=== PATIENT | female | born 1990 | race Caucasian/White ===

== ENCOUNTER → 2020-04-21 14:13 | Outpatient (REF) | payer OTHER, SELFPAY | LOC: ANHLAB 14:13 | PROVIDERS: PCP Family Medicine; Visit Provider Nurse Practitioner | DX: D22.72 Melanocytic nevi of left lower limb, including hip (principal) | CPT/HCPCS: 88305 ==

== ENCOUNTER 2020-07-07 15:07 | Outpatient (CLI) | payer OTHER, SELFPAY ==
[2020-07-07 17:24] LABS: Free T4 Free Thyroxine 0.77 ng/mL (0.78-2.19)
== END 2020-07-07 15:08 | disposition home or self-care (01) ==
LOC: ANHLAB 15:09
PROVIDERS: Visit Provider Obstetrics & Gynecology
DX: N92.1 Excessive and frequent menstruation with irregular cycle (principal)
CPT/HCPCS: 36415; 84439; 84443

== ENCOUNTER 2020-07-21 16:28 | Outpatient (CLI) | payer OTHER, SELFPAY ==
--- NOTE | ~2020-07-21 | US_ITS ---
EXAMINATION: US pelvic complete w TV DATE: 07/21/2020 17:03 INDICATION: Menometrorrhagia TECHNIQUE: Multiple transabdominal and endovaginal sonographic images of the pelvis were obtained. COMPARISON: None. FINDINGS: The uterus measures 7.0 x 3.3 x 5.3 cm. The endometrial complex measures 4 mm. An IUD appea rs to be in expected position. The right ovary measures 3.2 x 1.9 x 2.4 cm. The left ovary measures 2 .3 x 1.5 x 1.8 cm. There is normal vascular flow in the ovaries. There is no free fluid in the pelvis . IMPRESSION: 1. No sonographic correlate for the patient's symptoms. Reviewed, dictated and finalized at location A.
== END 2020-07-21 16:29 | disposition home or self-care (01) ==
PROVIDERS: Visit Provider Obstetrics & Gynecology
DX: N92.1 Excessive and frequent menstruation with irregular cycle (principal)
CPT/HCPCS: 76830; 76856

== ENCOUNTER 2020-11-23 07:58 | Outpatient (CLI) | payer OTHER, SELFPAY ==
[2020-11-23 08:14] LABS: Hemoglobin 11.8 g/dL (12.0-15.0); Mean Corpuscular HGB Conc 32.8 g/dl (32-36); Mean Corpuscular Hemoglobin 31.1 pg (26-34); Mean Platelet Volume 9.5 fl (7.4-10.4); Platelet Count Result 244 k/mm3 (150-375); Red Blood Count 3.79 M/mm3 (4.2-5.4); Red Cell Distribution Width 13.2 % (11.5-14.5); White Blood Count 4.6 K/mm3 (4.5-10.0)
[2020-11-23 08:26] LABS: Alanine Aminotransferase 12 U/L (4-35); Albumin Level 3.9 g/dL (3.5-5.1); Alkaline Phosphatase 42 U/L (38-126); Anion Gap 3 mmol/L (8-16); Aspartate Amino Transferase 23 U/L (14-36); Bilirubin,Total 0.5 mg/dL (0.2-1.3); Blood Urea Nitrogen 11 mg/dL (7-17); Calcium 9.1 mg/dL (8.4-10.2); Carbon Dioxide 28 mmol/L (22-30); Chloride 105 mmol/L (98-107); Cholesterol 175 mg/dL (0-200); Estimated Glomerular Filt Rate > 60; Glucose 98 mg/dL (65-105); HDL Direct 91 mg/dL; Sodium 136 mmol/L (137-145); Triglycerides 99 mg/dL (<150)
[2020-11-23 08:37] LABS: LDL Cholesterol Direct 65 mg/dL
[2020-11-23 08:55] LABS: Free T4 Free Thyroxine 0.84 ng/mL (0.78-2.19)
[2020-11-25 10:48] LABS: Triiodothyronine T3 Free 2.3 pg/mL (2.3-4.2)
== END 2020-11-23 07:59 | disposition home or self-care (01) ==
PROVIDERS: Family Provider Family Medicine; PCP Internal Medicine; Visit Provider Internal Medicine
DX: Z00.00 Encounter for general adult medical examination without abnormal findings (principal)
CPT/HCPCS: 36415; 80053; 80061; 84439; 84443; 84481; 85027

== ENCOUNTER → 2021-01-26 15:49 | Outpatient (REF) | payer OTHER, SELFPAY | LOC: ANHLAB 15:49 | PROVIDERS: PCP Internal Medicine; Visit Provider Nurse Practitioner | DX: D22.62 Melanocytic nevi of left upper limb, including shoulder (principal) | CPT/HCPCS: 88305 ==

== ENCOUNTER 2021-04-02 15:00 | Outpatient (RCR) | payer OTHER, SELFPAY ==
--- NOTE | 2021-03-05 10:17 | PTOPEVAL ---
Thank you for referring Sharonda Sweeney to [facility] [place].? The patient is scheduled to be seen for therapy 2 x/week for 6 weeks. Please review, sign, date and return this plan of care LORRAINE. I agree with and certify that the following plan of care is medically necessary. 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 Denies a problem with her feet until the past 6 months. Subjective Information After her toe healed she Query Text:As Reported By Patient/ started having heel pain in Family Jun 2020. She c/o heel pain in the morning when getting out of bed. She has been stretching and using heat. She performing walking program for exercise. She has increased at the end of day after work. 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 She received an injection in 10/18. She received a 2nd injection 6 wk ago without relief. Custom inserts which helped in her work shoes initially. But then had increased pain with the inserts. She stopped the inserts 2 wk ago with improved pain. Pain Assessment Self Report Pain Assessment Right Volar Foot/Feet Reported Pain Level 0 Pain Description Aching Pain Frequency Chronic,Intermittent Lowest Pain Intensity 0 Greatest Pain Intensity 2 Pain Aggravating Factors Exercise/Activity,Walking, Weight Bearing/Standing Pain Behaviors None Left Volar Foot/Feet Reported Pain Level 0 Pain Description Aching Pain Frequency Chronic,Intermittent Lowest Pain Intensity 0 Greatest Pain Intensity 4 Pain Aggravating Factors Exercise/Activity,Prolonged Position,Walking,Weight Bearing/Standing Pain Behaviors None Lower Extremit
--- NOTE | 2021-04-02 15:51 | PTOPEVAL ---
Thank you for referring Sharonda Sweeney to [facility].? Sharonda has been seen for 7 therapy visits with only slight improved pain and function. She demonstrates improved strength and ankle motion, but no changes with walking or standing tolerance. She has partially achieved her therapy goals. Will hold chart open for 2 weeks as she has f/u with her doctor. Additional therapy services are not recommended at this time. Please review, sign, date and return this therapy update LORRAINE. I agree with and certify that the following plan of care is medically necessary. Referring Physician Date Attending Provider: Asif Castañeda JR, MD Physical Therapy progress note Problem Diagnosis left achilles tendonitis and hugh plantar fasciitis Onset Jun 2020 Additional Evaluation Detail broken toe Jun 2020. After her toe healed she started having heel pain in Jun 2020. She received an injection in 10/18. She received a 2nd injection 6 wk ago without relief. 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 Denies a problem with her feet until the past 6 months. Subjective Information She does not feel therapy has Query Text:As Reported By Patient/ improved her foot pain. She Family continues to have severe pain with standing activities. She reports improved pain in the morning when getting out of bed. She denies any changes in her symptoms with her HEP. Reports she feels better right after the therapy and modalities but no correction carry-over of pain relieft. She is able to perform a walking program without increased pain, but when she stops she will have increased pain. She stopped the inserts due to increased pain with wearing the inserts. Pain Assessment Timing of Pain Assessment Timing of Pain Assessment Re-assessment Pain Scale Pain Scale Used Numeric (1 - 10) Self Report Pain Assessment Right Volar Foot/Feet Reported Pain Level 4 Pain Description Aching Pain Frequency Chronic,Continuous Lowest Pain Intensity
--- NOTE | 2021-04-23 11:27 | PCPTNOTE ---
Admitting Provider: Attending Provider: Asif Castañeda JR, MD Patient:Sharonda Sweeney Date of :1990 Discharge Note Patient has not returned for any further treatments since 04/02/2021, therefore she will be discharged at this time. Patient?s initial visit was on 03/05/2021 09:00 and she had a total of 7 visits. Recommended she f/u with her doctor due to lack of progress with therapy services. The goals have been partially met at this time. Thank you for referring this patient to [facility]. Please review, sign, date and return this discharge summary LORRAINE. I have been updated about the patient's current status and I agree with discharge from the above service at this time. Referring Physician Date
== END 2021-04-26 09:25 | disposition home or self-care (01) ==
LOC: ANHPT 15:00
PROVIDERS: PCP Internal Medicine; Visit Provider Podiatrist Foot & Ankle Surgery
DX: M72.2 Plantar fascial fibromatosis (principal); M76.62 Achilles tendinitis, left leg
CPT/HCPCS: 97035; 97110; 97140; 97161

== ENCOUNTER 2022-01-13 10:33 | Outpatient (CLI) | payer OTHER, SELFPAY ==
--- NOTE | ~2022-01-13 | US_ITS ---
EXAMINATION: US pelvic complete w TV DATE: 01/13/2022 11:28 INDICATION: Dysmenorrhea. Comparison: 07/21/2020 TECHNIQUE: Multiple transabdominal and endovaginal sonographic images of the pelvis performed. FINDINGS: The uterus measures 10.5 x 5.3 x 2.9 cm. There is a small millimeter uterine fibroid. The e ndometrial complex measures 6 mm. The right ovary measures 1.6 x 1.1 x 0.9 cm and the left ovary measures 2.4 x 1 x 1.1 cm. There are small follicles in each ovary. Normal doppler signal in both ovaries. There is no free fluid in the pelvis. There are no abnormal masses seen on either side. IMPRESSION: 1. Small uterine fibroid measuring 6 mm. Reviewed, dictated and finalized at location B.
== END 2022-01-13 10:34 | disposition home or self-care (01) ==
LOC: ANHIMG 10:34
PROVIDERS: PCP Internal Medicine; Visit Provider Obstetrics & Gynecology
DX: N92.1 Excessive and frequent menstruation with irregular cycle (principal); N94.6 Dysmenorrhea, unspecified; D25.9 Leiomyoma of uterus, unspecified
CPT/HCPCS: 76830; 76856

== ENCOUNTER 2022-01-27 15:11 | Outpatient (CLI) | payer OTHER, SELFPAY ==
[2022-01-27 15:34] LABS: Basophils Absolute Auto 0.04 K/mm3 (0.00-0.10); Basophils Percent Auto 0.6 % (0.0-1.0); Eosinophils Absolute Auto 0.13 K/mm3 (0.02-0.50); Eosinophils Percent Auto 1.9 % (1.0-6.0); Hematocrit 36.6 % (35.0-49.0); Hemoglobin 11.9 g/dL (12.0-15.0); Immature Granulocyte Absolute 0.02 K/mm3 (0.00-0.00); Immature Granulocyte Percent A 0.3 % (0.0-0.0); Lymphocytes Absolute Auto 1.87 K/mm3 (1.10-4.50); Lymphocytes Percent Auto 27.7 % (18.0-42.0); Mean Corpuscular HGB Conc 32.5 g/dL (32.0-36.0); Mean Corpuscular Hemoglobin 30.7 pg (27.0-31.0); Mean Corpuscular Volume 94.6 fL (78.0-102.0); Mean Platelet Volume 9.5 fl (9.2-11.8); Monocytes Absolute Auto 0.51 K/mm3 (0.10-0.90); Monocytes Percent Auto 7.5 % (2.0-11.0); Neutrophils Absolute Auto 4.2 K/mm3 (1.7-7.2); Platelet Count Result 258 K/mm3 (150-420); Red Blood Count 3.87 M/mm3 (4.20-5.40); Red Cell Distribution Width 12.9 % (11.6-14.4); White Blood Count 6.8 K/mm3 (4.8-10.8)
[2022-01-27 15:36] LABS: Add Urine Microscopic? NO; Appearance Urine Clear (Clear); Bilirubin Urine Negative (Negative); Blood Urine Negative (Negative); Color Urine Light Yellow (Yellow); Glucose Urine UA Negative (Negative); Ketones Urine Negative (Negative); Leukocyte Esterase Ur Negative LEU/UL (Negative); Nitrate Urine Negative (Negative); Protein Urine Negative (Negative); Specific Grav Ur <= 1.005 (1.010-1.020); Urobilinogen Urine 0.2 mg/dL (0.2-1.0); pH Urine 6.5 (5.0-8.0)
[2022-01-27 16:01] LABS: Alanine Aminotransferase 47 U/L (14-59); Albumin Level 3.8 g/dL (3.4-5.0); Alkaline Phosphatase 60 U/L (46-116); Amylase 37 U/L (25-115); Anion Gap 10 mmol/L (8-16); Aspartate Amino Transferase 24 U/L (15-37); Bilirubin,Total 0.2 mg/dL (0.00-1.00); Blood Urea Nitrogen 7 mg/dL (7-18); Calcium 9.1 mg/dL (8.5-10.1); Carbon Dioxide 26 mmol/L (21-32); Chloride 100 mmol/L (98-108); Estimated Glomerular Filt Rate > 60; Glucose 101 mg/dL (70-99); Lipase 73 U/L (73-393); Osmolality Calculated 280 mOsm/kg (285-295); Potassium 3.8 mmol/L (3.5-5.1); Sodium 136 mmol/L (136-145)
== END 2022-01-27 15:12 | disposition home or self-care (01) ==
LOC: CHSLAB 15:14
PROVIDERS: PCP Internal Medicine; Visit Provider Nurse Practitioner Family
DX: R10.9 Unspecified abdominal pain (principal); R11.0 Nausea
CPT/HCPCS: 36415; 80053; 81003; 82150; 83690; 85025

== ENCOUNTER 2022-02-02 00:52 | Day surgery (SDC) | payer OTHER, SELFPAY ==
[2022-01-25 15:02] VITALS: BMI 28.8
--- NOTE | 2022-01-25 15:40 | PC.NURSE ---
Report to the Outpatient Waiting Room, entrance under the green pavilion located off [facility], at 1300 on 02-02-22 OR Time: 1500. - You and your visitor will be asked a series of questions to screen for COVID 19 for your protection. - A mask is required within the hospital. Preoperative COVID Testing Requirements: No COVID Test needed if: (proof is required; if not received patient will have Rapid Test prior to entry) - Patient has received COVID Vaccine at least 14 days prior to procedure date or - Patient has positive COVID test result within last 90 days of surgery date. COVID Test needed if above criteria is not met If not COVID vaccinated a COVID test must be conducted within 72 hours of surgery and patient is asked to isolate self from time of testing until procedure. You will go to the [facility] for your COVID testing. The [facility] site is located at the corner of [address] [facility]. You will only be called if COVID results are positive and your surgeon may reschedule your elective surgery date. Patients may have clear liquids (water, carbonated beverages, clear teas, apple juice) until 3 hours prior to surgery with a maximum of 20 ounces. 1200 - No food from midnight until time of surgery - Infants may have breast milk until 4 hours before surgery, formula 6 hours prior to surgery. - Children will be allowed to drink immediately following surgery. If applicable, please bring a bottle or sippy cup to assist with drinking. Juice, water, soda, and popsicles are readily available. For infants on formula, please bring formula the day of surgery. Pacifiers are allowed. Take the following medications with a SIP of water the morning of surgery: fluoxetine, buspar Medications to discontinue per physician: N/A Date to take last dose: N/A Please no make-up, nail american, hairspray, perfume, deodorant, or body powder the day of surgery. No jewelry (including any body piercings) or valuables the day of surgery, leave them at home. Please take a shower or bath the night before, or the morning of, surgery with an antibacterial soap. Wear comfortable, loose fitting clothing. Children are encouraged to wear pajamas. - Jewelry must be removed prior to entering the operating room. Rings and piercings that are not removed may be cut off. - The hospital will not accept responsibility for valuables. - Please leave all valuables, including medications, at home the day of surgery. If you are going home after surgery, a licensed [employer] company driver must drive you home. - NO public transportation without another adult. - We recommend that an adult stay with you for 24 hours following discharge. - We also recommend that you do not drive, make important decision, drink alcoholic beverages, or take any drugs that were not prescribed by your health care provider for at least 24 hours after your discharge time. For Pediatric surgeries, we recommend two adults accompany the child home (only one inside the building at this time). One visitor will be allowed to accompany the patient into the hospital. Patients visitor will be instructed to remain with patient at all times or leave the building. We will allow the visitor to come back to the postoperative area when patient is ready. Follow any additional instructions given to you from your surgeon. Telephone instructions given to Sharonda Anderson and asked if any additional questions and then verbalized understanding. Patient advised to call surgeon office or pre surgery nurse liaison [phone] if any additional questions.
[2022-02-02] MEDS: ACETAMINOPHEN 500 MG TABLET 1000 MG PO (12:56)
[2022-02-02] MEDS: LACTATED RINGERS 1,000 ML 30 ML IV CONT ×2 (13:15→16:00)
[2022-02-02 13:21] VITALS: BP 146/79; PULSE 97; RESP 16; TEMP 37.2; O2SAT 100
--- NOTE | 2022-02-02 13:34 | PM.IMHP ---
H&P: HPI History of Present Illness Date/Time: 02/02/22 13:34 31 y/o who has persistent trouble with heavy, irregular vaginal bleeding that has been refractory to medical management. She has completed childbearing and is interested in permanent contraception. She desires surgical management. Chief Complaint: Irregular bleeding Review of Systems Review of Systems: All systems reviewed & are unremarkable except as noted in HPI and below PMFSH Surgical History Surgical History History of delivery Family History Family History Grandparent Hypertension Family history of lung cancer Social History Social History Smoking status: Never smoker Second hand tobacco smoke exposure: No Alcohol intake: current Alcohol use details: drinks socially/occasionally Substance use: never Substance use type: does not use Spiritual care concerns: No Meds Home Medications and Allergies Home Medications Medication Instructions Recorded Confirmed Type buspirone 10 mg PO BID 01/25/22 02/02/22 History desogestrel-ethinyl estradiol 1 tablet PO DAILY 01/25/22 02/02/22 History [Isibloom] fluoxetine 10 mg PO DAILY 01/25/22 02/02/22 History Allergies Allergy/AdvReac Type Severity Reaction Status Date / Time No Known Allergies Allergy Verified 02/02/22 12:44 Vital Signs Vital Signs - 24 hr 02/02/22 13:21 Temperature 37.2 C Pulse Rate 97 Respiratory Rate 16 Blood Pressure 146/79 H Pulse Oximetry 100 Exam Const: Orientation/consciousness: patient oriented x3 Other: Well-developed, well-nourished female in no acute distress. Neck: Thyroid: thyroid normal Lymphatic: no lymphadenopathy noted (in neck, axilla or inguinal nodes) Resp: Effort & Inspection: normal respiratory effort Auscultation: clear to auscultation bilaterally Cardio: Rate: regular rate Rhythm: regular rhythm Heart sounds: S1 normal heart sound present and S2 normal heart sound present GI: Other: ABD: Soft, nontender, nondistended. No guarding or rebound tenderness. No hepatosplenomegaly. : General: Yes no CVA tenderness Other: External genitalia: normal female hair distribution, without lesion. Urethral meatus: no lesion, non prolapsed. Bladder: no mass, nontender Vagina: well-estrogenized, without lesion or discharge. No cystocele or rectocele. Cervix: no lesion or discharge. Uterus: small, anteverted, freely mobile, nontender Adnexa: no mass or tenderness. Anus/perineum: no lesions, nontender Back/Spine/Pelvis: Back: no CVA tenderness Skin: General skin exam: normal color and no rashes or lesions noted Neuro: General: patient oriented x3 Extrem: Other: Extremities: nontender with no edema Psych: Mental Status: mental status grossly normal Affect: normal affect Assessment and Plan Assessment and plan (1) Menometrorrhagia: Code(s): N92.1 - Excessive and frequent menstruation with irregular cycle Status: Acute Assessment and Plan: A: Menometrorrhagia, desired sterility. P: She desires surgical management as above. Specifically, she desires laparoscopic bilateral salpingectomies, hysteroscopy, dilation and sharp curettage, and endometrial ablation. She understands there are temporary methods of contraception available to her. She understands that there are nonsurgical options as well as surgical options. She understands that tubal ligation will render her permanently sterile. She understands that there is a failure rate associated with tubal ligation, as well as an inherent ectopic gestation risk. Furthermore, she understands risks of surgery to include risks of anesthesia, risks of pain, infection, bleeding, blood products, thromboembolic phenomena and damage to adjacent structures such as bowel, bladder, urete
--- NOTE | 2022-02-02 13:37 | WPDHPUPDATE1 ---
History and Physical Update Update Date/Time: 02/02/22 13:37 History and Physical has been reviewed, including an updated exam of the patient. There are NO changes in the patient's condition. Risks, benefits, and alternatives have been discussed and questions answered. Patient agrees to proceed with procedure.
[2022-02-02] MEDS: KETOROLAC 15 MG/ML VIAL (*BKC) IV PUSH (13:39)
--- NOTE | 2022-02-02 14:35 | P.PNAN_ITS ---
Anes - Initial Pre Proc Eval Procedure: Operation Date: 02/02/22 14:30 Proposed Procedures p Hysteroscopy Dilation and Curettage with Endometrial Ablation Sylvia - Brody Prithcard MD s Bilateral Laparoscopic Salpingectomy - Brody Pritchard MD Date/Time: 02/02/22 14:35 Surgeon: Brody Pritchard MD Pre Op Diagnosis: desires sterilization,irregular bleeding Patient Data Age: 31 Gender: F Height: 1.73 m Weight: 86.4 kg Last Vital Signs Temp 37.2 C 02/02/22 13:21 Pulse 97 02/02/22 13:21 Resp 16 02/02/22 13:21 BP 146/79 H 02/02/22 13:21 Pulse Ox 100 02/02/22 13:21 Allergies Allergy/AdvReac Type Severity Reaction Status Date / Time No Known Allergies Allergy Verified 02/02/22 12:44 Home Medications Medication Instructions Recorded Confirmed Type buspirone 10 mg PO BID 01/25/22 02/02/22 History desogestrel-ethinyl estradiol 1 tablet PO DAILY 01/25/22 02/02/22 History [Isibloom] fluoxetine 10 mg PO DAILY 01/25/22 02/02/22 History Patient hx anesthesia problems: post op nausea/vomiting Family hx anesthesia problems: none Results Review: All pre-operative results and documents have been reviewed as part of the pre-operative evaluation. [facility] Surgical History Surgical History History of delivery Family History Family History Grandparent Hypertension Family history of lung cancer Social History Social History Smoking status: Never smoker Second hand tobacco smoke exposure: No Alcohol intake: current Alcohol use details: drinks socially/occasionally Substance use: never Substance use type: does not use Spiritual care concerns: No Anes - Eval Final PreProcedure Day of Procedure 02/02/22 14:35 Patient weight: normal Heart: regular rate and rhythm Lungs: clear to auscultation Airway: Mallampati scale class II Neurological: alert and oriented Last oral intake: >/= 8 hours ASA classification: II Emergent: no Anesthetic plan: proceed Anesthesia type and monitoring: general ETT and standard monitoring Results Review: All pre-operative results and documents have been reviewed as part of the pre-operative evaluation. Informed Consent: The patient's anesthetic plan and its attendant risks and benefits were discussed with the patient/family/POA. Questions were solicited and answers provided to the satisfaction of the patient/family/POA.
[2022-02-02] MEDS: SCOPOLAMINE 1.5 MG PATCH TRANSDERM (14:42)
--- NOTE | 2022-02-02 15:59 | W.PM.PROC2 ---
Procedure Note - Detailed Date of Procedure 02/02/22 Pre-op Diagnosis desires sterilization menometrorrhagia Post-op Diagnosis Same Procedure Performed Laparoscopic bilateral salpingectomies Hysteroscopy Dilation and sharp cuettage Endometrial ablation Surgeon Brody Pritchrad MD Anesthesia General and Local (1% lidocaine paracervical block) Findings Normal-appearing uterus, tubes and ovaries. Normal-appearing liver. Normal vermiform appendix. Unremarkable endometrial cavity. Both tubal ostia seen. Uterus sounded to a depth of 9 cm with cervical length of 3.5 cm. Description of Procedure The patient was taken to the operating room where general endotracheal anesthesia was administered. She was prepared and draped in the usual sterile fashion in dorsal lithotomy position. The bladder was drained with a red rubber catheter. A sterile speculum was placed into the vagina. The anterior lip of the cervix was grasped with a single-tooth tenaculum. The acorn uterine manipulator was placed. The speculum was withdrawn. Gloves were changed and attention was turned the abdomen. An infraumbilical skin incision was made with a scalpel. The abdomen was tented and a 5mm bladeless trocar was advanced under direct laparoscopic visualization. Pneumoperitoneum was administered using carbon dioxide gas. A survey of the pelvis and abdomen revealed the findings noted above. Two additional skin incisions were made in the left and right lower quadrants and 5 mm trocars were advanced under direct laparoscopic visualization. The right Fallopian tube was dissected free of its mesentery and the tube was ligated and transected with Ligasure. The tube was passed off to be sent to pathology. The left tube was similarly dissected and transected and passed off. Hemostasis was excellent. The ports were withdrawn. The gas was allowed to escape. The skin incisions were reapproximated using interrupted subcuticular sutures of 4 0 Vicryl. Dermaflex was applied externally. Attention was redirected to the vagina. The acorn manipulator was withdrawn and the speculum reintroduced. Ten mL of 1% lidocaine was administered in a paracervical block. The cervix was then gently dilated using Hegar dilators until an 8 mm dilator could be passed. Hysteroscopy was performed using sterile saline as a distention medium. Findings are as noted above. Sharp curettage was then performed, and endometrial curettings were collected on a Telfa pad and passed off to be sent to pathology. Finally, the the Sylvia device was advanced and endometrial ablation commenced without difficulty. The device was withdrawn and a second look was taken using the hysteroscope. Excellent coverage of the endometrial cavity was noted. The tenaculum was removed. Hemostasis was excellent. Sponge, lap, needle and instrument counts were correct. The patient was awakened and taken to the recovery room in stable condition. I was present and scrubbed through the entire procedure. Implants None Estimated Blood Loss 10 Drains No Packing No Pathology Yes (Bilateral Fallopian tubes, endometrial curettings) Complications None Condition Stable Disposition PACU
[2022-02-02 16:00] VITALS: BP 128/75; PULSE 109; RESP 16; TEMP 37.2; O2SAT 100
[2022-02-02 16:15] VITALS: BP 128/77; PULSE 95; RESP 16; O2SAT 100
[2022-02-02 16:30] VITALS: BP 125/74; PULSE 88; RESP 18; O2SAT 98
[2022-02-02 16:40] VITALS: BP 111/77; PULSE 85; RESP 16
[2022-02-02 17:10] VITALS: BP 123/78; PULSE 80; RESP 16
== END 2022-02-02 17:30 | disposition home or self-care (01) ==
PROVIDERS: PCP Internal Medicine; Visit Provider Obstetrics & Gynecology
PROC: 0U5B8ZZ Destruction of Endometrium, Via Natural or Artificial Opening Endoscopic (ICD-10-PCS; CPT 58563; principal; 2022-02-02 14:30)
PROC: (CPT 49320; 2022-02-02 14:30)
DX: Z30.2 Encounter for sterilization (principal); N92.1 Excessive and frequent menstruation with irregular cycle
CPT/HCPCS: 58661; 58563; 88302; 88305; A9270; J0330; J1100; J1885; J2250; J2405; J2704; J3010; J7030; J7120

== ENCOUNTER 2022-02-02 08:20 | Outpatient (CLI) | payer OTHER, SELFPAY ==
--- NOTE | ~2022-02-02 | US_ITS ---
EXAMINATION: US right upper quadrant EXAM DATE: 02/02/2022 08:47 INDICATION: Abdominal pain/Nausea. TECHNIQUE: Multiple grayscale and Doppler images of the abdomen right upper quadrant were obtained (b y a technologist who performed the scan) and subsequently reviewed. There is no prior study for haim morrow. FINDINGS: The pancreatic head and body are normal in appearance. The pancreatic tail is not visualized. The l iver has normal echogenicity and contour. There is focal hyperechoic left liver lobe region anterior ly measuring 1.6 cm, another at the right liver dome measuring 8 mm. Given patient's young age and so nographic appearance, these are most likely benign, could be hemangiomata which are typically hyperec hoic. There is no evidence of intrahepatic biliary duct dilation. Portal venous flow was seen in the hepatopedal, normal direction and has normal Doppler waveform. No right-sided hydronephrosis. Common bile duct measures 3 mm, which is normal. The gallbladder wall is normal in thickness, with ex pected amount of distention. No sonographic evidence of pericholecystic fluid. There is no cholelit hiases. Technologist performing exam reports patient did not demonstrate sonographic Shah's sign. Please note that this sign is less reliable in patients who have received pain medication. IMPRESSION: 2 small liver lesions, could be hemangiomata given appearance. Patient's age also certain ly favors benign histology. Unremarkable gallbladder. Reviewed, dictated and finalized at location A. IMPRESSION: 2 small liver lesions, could be hemangiomata given appearance. Bria ent's age also certainly favors benign histology. Unremarkable gallbladder.
== END 2022-02-02 08:21 | disposition home or self-care (01) ==
LOC: CHSIMG 08:21
PROVIDERS: PCP Internal Medicine; Visit Provider Nurse Practitioner Family
DX: R10.9 Unspecified abdominal pain (principal); R11.0 Nausea
CPT/HCPCS: 76705

== ENCOUNTER 2023-09-25 15:44 | Outpatient (CLI) | payer OTHER, SELFPAY ==
[2023-09-25 16:00] LABS: Appearance Urine Clear (Clear); Basophils Absolute Auto 0.03 K/mm3 (0.00-0.10); Basophils Percent Auto 0.4 % (0.0-1.0); Bilirubin Urine Negative (Negative); Blood Urine 1+ (Negative); Color Urine Light Yellow (Yellow); Eosinophils Absolute Auto 0.11 K/mm3 (0.02-0.50); Eosinophils Percent Auto 1.3 % (1.0-6.0); Glucose Urine UA Negative (Negative); Hematocrit 38.4 % (35.0-49.0); Hemoglobin 12.7 g/dL (12.0-15.0); Immature Granulocyte Absolute 0.03 K/mm3 (0.00-0.00); Immature Granulocyte Percent A 0.4 % (0.0-0.0); Ketones Urine Negative (Negative); Leukocyte Esterase Ur 2+ LEU/UL (Negative); Lymphocytes Absolute Auto 2.17 K/mm3 (1.10-4.50); Lymphocytes Percent Auto 26.4 % (18.0-42.0); Mean Corpuscular HGB Conc 33.1 g/dL (32.0-36.0); Mean Corpuscular Hemoglobin 31.1 pg (27.0-31.0); Mean Corpuscular Volume 93.9 fL (78.0-102.0); Mean Platelet Volume 9.5 fl (9.2-11.8); Monocytes Percent Auto 6.1 % (2.0-11.0); Neutrophils Absolute Auto 5.4 K/mm3 (1.7-7.2); Neutrophils Percent Auto 65.4 % (50.0-70.0); Nitrate Urine Negative (Negative); Platelet Count Result 295 K/mm3 (150-420); Protein Urine Negative (Negative); Red Blood Count 4.09 M/mm3 (4.20-5.40); Red Cell Distribution Width 12.8 % (11.6-14.4); Urobilinogen Urine 0.2 mg/dL (0.2-1.0); White Blood Count 8.2 K/mm3 (4.8-10.8); pH Urine 6.5 (5.0-8.0)
[2023-09-25 16:13] LABS: Hemoglobin A1C 5.8 % (<5.7)
[2023-09-25 16:32] LABS: Add Urine Microscopic? YES; Bacteria Urine 2+ /hpf; Squamous Epithelial Cell Urine Few /hpf (Few)
[2023-09-25 16:56] LABS: Alanine Aminotransferase 37 U/L (14-59); Albumin Level 3.7 g/dL (3.4-5.0); Alkaline Phosphatase 77 U/L (46-116); Anion Gap 7 mmol/L (8-16); Aspartate Amino Transferase 19 U/L (15-37); Bilirubin,Total 0.3 mg/dL (0.00-1.00); Blood Urea Nitrogen 10 mg/dL (7-18); Calcium 9.3 mg/dL (8.5-10.1); Carbon Dioxide 32 mmol/L (21-32); Chloride 101 mmol/L (98-108); Cholesterol 222 mg/dL (0-200); Estimated Glomerular Filt Rate > 60; Free T3 2.81 pg/mL (2.18-3.98); Glucose 100 mg/dL (70-99); HDL Direct 63 mg/dL (40-60); LDL Cholesterol Calculated 132 mg/dL (<130); Osmolality Calculated 289 mOsm/kg (285-295); Potassium 4.1 mmol/L (3.5-5.1); Sodium 140 mmol/L (136-145); Thyroid Stimulating Hormone 2.99 uIU/mL (0.36-3.74); Total Protein 7.1 g/dL (6.4-8.2); Triglycerides 134 mg/dL (0-150)
== END 2023-09-25 15:45 | disposition home or self-care (01) ==
LOC: CHSLAB 15:47
PROVIDERS: PCP Internal Medicine; Visit Provider Internal Medicine
DX: Z00.00 Encounter for general adult medical examination without abnormal findings (principal); R10.11 Right upper quadrant pain; D64.9 Anemia, unspecified; R53.82 Chronic fatigue, unspecified
CPT/HCPCS: 36415; 80053; 80061; 81001; 83036; 84439; 84443; 84481; 85025; 87086

== ENCOUNTER 2023-10-02 08:00 | Outpatient (CLI) | payer OTHER, SELFPAY ==
--- NOTE | ~2023-10-02 | XR_ITS ---
XR chest 2V 10/02/2023 08:18 Indication: Liver nodules. Abdomen pain. Procedure: PA and lateral views of the chest Comparison: 04/27/2011 Findings: Heart size normal. There is lingular atelectasis. No focal pneumonia, pleural effusion, maryann ma or pneumothorax. There is mild scoliosis. Impression: 1: Lingular atelectasis. Reviewed, dictated and finalized at location B. DING LINE ATTENDANT Impression: 1: Lingular atelectasis.
--- NOTE | ~2023-10-02 | CT_ITS ---
CT of the Abdomen: Indication: Right upper quadrant pain Technique: 2.5 mm axial scans were obtained through the abdomen following intravenous administration of 100 cc of Omnipaque 350. Dose reduction technique was used on this scan by utilizing automated ex posure control and iterative reconstruction technique. The dose-length product (DLP) was 361.97 mGy-c m. Findings: Scans through the lung bases demonstrate small basilar pericardial effusion. The liver, spleen, pancreas, gallbladder, adrenals and kidneys are within normal limits. No evidence of aortic aneurysm. No lymphadenopathy. Visualized bowel loops are unremarkable. No ascites. Impression: Small pericardial effusion. No other significant findings. Reviewed, dictated and finalized at location M. [facility] Impression: Small pericardial effusion. No other significant findings.
== END 2023-10-02 08:01 | disposition home or self-care (01) ==
PROVIDERS: PCP Internal Medicine; Visit Provider Family Medicine
DX: R10.11 Right upper quadrant pain (principal); R91.8 Other nonspecific abnormal finding of lung field; I31.39 Other pericardial effusion (noninflammatory)
CPT/HCPCS: 71046; 74160; Q9967

== ENCOUNTER 2023-10-18 13:49 | Outpatient (CLI) | payer OTHER, SELFPAY ==
--- NOTE | 2023-10-18 | ECHO_ITS ---
Patient Info Name: Sharonda Sweeney Age: 33 years : 1990 Gender: Female Ht: 68 in Wt: 195 lbs BSA: 2.08 m2 HR: 74 bpm BP: 135 / 78 mmHg Heart Rhythm: Sinus Rhythm Technical Quality: Fair Exam Date: 10/18/2023 2:28 PM Exam Location: Echo Lab Patient Status: Outpatient Admit Date: 10/18/2023 Staff Ordering Physician: Ana Rosa Elliott MD Attending Provider: Ana Rosa Elliott MD Referring Physician: Earl HERRING; Exam Type: CA echo doppler color flow Study Info Indications I31.3 - Pericardial effusion (noninflammatory) Complete two-dimensional, color flow and Doppler transthoracic echocardiogram is performed. Summary 1. Complete two-dimensional, color flow and Doppler transthoracic echocardiogram is performed. 2. Left ventricular chamber dimension is normal. 3. Left ventricular systolic function is normal, estimated at 60-65%. 4. The left ventricular diastolic function is normal. 5. E/e' 6 is not elevated. 6. There is trace mitral valve regurgitation. 7. There is mild tricuspid valve regurgitation. 8. There is trace to small circumferential pericardial effusion and small at right side of heart. Left Ventricle E/e' 6 is not elevated. Left ventricular chamber dimension is normal. Left ventricular systolic function is normal, estimated at 60-65%. The left ventricular diastolic function is normal. Right Ventricle Right ventricular systolic function is normal and with normal TAPSE 1.9 cm. Right ventricular chamber dimension is normal. Left Atria Left atrial chamber dimension is normal. Right Atria Right atrial chamber dimension is normal. Aortic Valve The aortic valve is trileaflet. There is no aortic valve stenosis. There is no aortic valve regurgitation. Pulmonic Valve There is no pulmonic regurgitation. Mitral Valve There is no mitral valve stenosis. There is trace mitral valve regurgitation. Tricuspid Valve RVSP is not calculated due to an inadequate TR jet. There is mild tricuspid valve regurgitation. Pericardium/Pleural There is trace to small circumferential pericardial effusion and small at right side of heart. No cardiac tamponade. Inferior Vena Cava Normal inferior vena cava with >50% collapse upon inspiration consistent with normal right atrial pressure, 5 mmHg. Aorta The aortic root size at the sinus of Valsalva is normal. Left Ventricular Outflow Tract Name Value Normal LVOT 2D LVOT Diameter 2.0 cm LVOT Doppler LVOT Peak Gradient 4 mmHg LVOT Mean Gradient 2 mmHg LVOT VTI 21 cm LVOT VTI/AV VTI Ratio 0.6 LVOT Stroke Volume 70 ml LVOT CO 4.6 l/min LVOT CI 2.2 l/min/m2 Pulmonic Valve Name Value Normal PV Doppler PV Peak Gradient 3 mmHg Mitral Valve
== END 2023-10-18 13:50 | disposition home or self-care (01) ==
LOC: ANHCARD 13:51
PROVIDERS: PCP Internal Medicine; Visit Provider Internal Medicine
DX: I31.39 Other pericardial effusion (noninflammatory) (principal)
CPT/HCPCS: 93306

== ENCOUNTER 2023-10-20 10:58 | Outpatient (CLI) | payer OTHER, SELFPAY ==
[2023-10-20 11:13] LABS: Basophils Absolute Auto 0.03 K/mm3 (0.00-0.10); Basophils Percent Auto 0.5 % (0.0-1.0); Eosinophils Absolute Auto 0.07 K/mm3 (0.02-0.50); Eosinophils Percent Auto 1.2 % (1.0-6.0); Hematocrit 37.3 % (35.0-49.0); Hemoglobin 12.2 g/dL (12.0-15.0); Immature Granulocyte Absolute 0.02 K/mm3 (0.00-0.00); Immature Granulocyte Percent A 0.4 % (0.0-0.0); Lymphocytes Absolute Auto 1.62 K/mm3 (1.10-4.50); Lymphocytes Percent Auto 28.7 % (18.0-42.0); Mean Corpuscular HGB Conc 32.7 g/dL (32.0-36.0); Mean Corpuscular Hemoglobin 31.4 pg (27.0-31.0); Mean Corpuscular Volume 95.9 fL (78.0-102.0); Mean Platelet Volume 9.5 fl (9.2-11.8); Monocytes Absolute Auto 0.46 K/mm3 (0.10-0.90); Monocytes Percent Auto 8.1 % (2.0-11.0); Neutrophils Absolute Auto 3.5 K/mm3 (1.7-7.2); Neutrophils Percent Auto 61.1 % (50.0-70.0); Platelet Count Result 280 K/mm3 (150-420); Red Blood Count 3.89 M/mm3 (4.20-5.40); Red Cell Distribution Width 13.2 % (11.6-14.4); White Blood Count 5.7 K/mm3 (4.8-10.8)
[2023-10-20 11:50] LABS: NT Pro B Type Natriuretic Pept 44 pg/mL (0-125)
[2023-10-20 12:08] LABS: CRP < 0.5 mg/dL (0.0-0.9)
[2023-10-20 12:13] LABS: Erythrocyte Sedimentation Rate 11 mm/hr (0-15)
== END 2023-10-20 10:59 | disposition home or self-care (01) ==
PROVIDERS: PCP Internal Medicine; Visit Provider Internal Medicine
DX: I31.39 Other pericardial effusion (noninflammatory) (principal)
CPT/HCPCS: 36415; 82164; 83880; 85025; 85652; 86038; 86140

== ENCOUNTER 2024-05-03 09:12 | Outpatient (CLI) | payer OTHER, SELFPAY ==
[2024-05-03 09:47] LABS: Alanine Aminotransferase 31 U/L (6-35); Albumin Level 4.5 g/dL (3.5-5.1); Alkaline Phosphatase 64 U/L (38-126); Anion Gap 6 mmol/L (4-12); Aspartate Amino Transferase 31 U/L (14-36); Bilirubin,Total 0.7 mg/dL (0.2-1.3); Blood Urea Nitrogen 12 mg/dL (7-17); Calcium 9.4 mg/dL (8.4-10.2); Carbon Dioxide 26 mmol/L (22-30); Chloride 106 mmol/L (98-107); Cholesterol 189 mg/dL (0-200); Estimated Glomerular Filt Rate > 60; Glucose 100 mg/dL (65-110); HDL Direct 88 mg/dL; Potassium 4.6 mmol/L (3.4-5.0); Sodium 138 mmol/L (137-145); Triglycerides 85 mg/dL (<150)
[2024-05-03 09:58] LABS: LDL Cholesterol Direct 80 mg/dL
[2024-05-03 10:00] LABS: Hemoglobin A1C 4.9 % (<5.7)
== END 2024-05-03 09:13 | disposition home or self-care (01) ==
LOC: ANHLAB 09:15
PROVIDERS: PCP Internal Medicine; Visit Provider Internal Medicine
DX: R73.01 Impaired fasting glucose (principal); E78.00 Pure hypercholesterolemia, unspecified
CPT/HCPCS: 36415; 80053; 80061; 83036

== ENCOUNTER 2024-11-19 16:15 | Outpatient (CLI) | payer OTHER, SELFPAY ==
[2024-11-19 16:39] LABS: Basophils Absolute Auto 0.05 K/mm3 (0.00-0.10); Basophils Percent Auto 0.7 % (0.0-1.0); Eosinophils Absolute Auto 0.22 K/mm3 (0.02-0.50); Eosinophils Percent Auto 3.1 % (1.0-6.0); Hematocrit 35.5 % (35.0-49.0); Hemoglobin 11.7 g/dL (12.0-15.0); Immature Granulocyte Absolute 0.02 K/mm3 (0.00-0.00); Immature Granulocyte Percent A 0.3 % (0.0-0.0); Lymphocytes Percent Auto 36.9 % (18.0-42.0); Mean Corpuscular Hemoglobin 30.3 pg (27.0-31.0); Mean Platelet Volume 9.6 fl (9.2-11.8); Monocytes Percent Auto 7.1 % (2.0-11.0); Neutrophils Absolute Auto 3.65 K/mm3 (1.70-7.20); Neutrophils Percent Auto 51.9 % (50.0-70.0); Platelet Count Result 261 K/mm3 (150-420); Red Blood Count 3.86 M/mm3 (4.20-5.40); Red Cell Distribution Width 12.9 % (11.6-14.4)
[2024-11-19 17:05] LABS: Alanine Aminotransferase 34 U/L (14-59); Albumin Level 4.2 g/dL (3.4-5.0); Alkaline Phosphatase 68 U/L (46-116); Anion Gap 9 mmol/L (4-12); Aspartate Amino Transferase 18 U/L (15-37); Bilirubin,Total 0.4 mg/dL (0.00-1.00); Blood Urea Nitrogen 8 mg/dL (7-18); Calcium 9.5 mg/dL (8.5-10.1); Carbon Dioxide 26 mmol/L (21-32); Chloride 102 mmol/L (98-108); Estimated Glomerular Filt Rate > 60; Glucose 96 mg/dL (70-99); Osmolality Calculated 282 mOsm/kg (285-295); Potassium 4.1 mmol/L (3.5-5.1); Sodium 137 mmol/L (136-145); Total Protein 7.1 g/dL (6.4-8.2)
[2024-11-19 17:18] LABS: CRP < 0.5 mg/dL (0.0-0.9)
[2024-11-19 17:42] LABS: Erythrocyte Sedimentation Rate 10 mm/hr (0-15)
== END 2024-11-19 16:16 | disposition home or self-care (01) ==
PROVIDERS: PCP Internal Medicine; Visit Provider Internal Medicine
DX: R10.11 Right upper quadrant pain (principal)
CPT/HCPCS: 36415; 80053; 85025; 85652; 86140

== ENCOUNTER 2024-12-13 07:03 | Outpatient (CLI) | payer OTHER, SELFPAY ==
--- NOTE | ~2024-12-13 | US_ITS ---
EXAMINATION: US right upper quadrant DATE: 12/13/2024 08:16 INDICATION: Right lower quadrant abdominal pain. TECHNIQUE: Multiple grayscale and Doppler ultrasound images of the abdomen were obtained. COMPARISON: CT abdomen 10/02/2023 FINDINGS: The visualized portions of the head, body, and tail of the pancreas are normal. There is a 2.2 cm hypoechoic liver mass. There is normal flow in main portal vein. The gallbladder is normal in size. No gallstones or gallbladder wall thickening. There is no sonographic Shah's sign. The common duct is normal and measures 2 mm. IMPRESSION: 1. New 2.2 cm liver mass, which may be benign or malignant. Abdomen MRI without and with contrast is recommended. Reviewed, dictated and finalized at location A. BALL PITCHER
--- NOTE | ~2024-12-13 | XR_ITS ---
EXAMINATION: XR chest 2V DATE: 12/13/2024 07:52 INDICATION: Chest pain. TECHNIQUE: Frontal and lateral views of the chest were obtained. COMPARISON: Chest 2 views 10/02/2023, chest CT 10/12/2025 FINDINGS: There is no pneumonia, pleural effusion, or pneumothorax. The heart size is normal. IMPRESSION: 1. No acute cardiopulmonary disease. Reviewed, dictated and finalized at location A. CTOR HEDIS
--- NOTE | ~2024-12-13 | CT_ITS ---
EXAMINATION:CT diagnostic chest w con DATE: 12/13/2024 07:57 INDICATION: Chest pain. TECHNIQUE: Computed tomography (CT) of the chest was performed with 75 mL Omnipaque 350 intravenous c ontrast. Automated exposure control and iterative reconstruction technique were employed. The dose-le ngth product (DLP) was 155.90 mGy-cm. COMPARISON: CT abdomen 10/02/2023 FINDINGS: The lungs demonstrate mild atelectasis. There are trace pleural effusions. The heart size i s normal. There is a trace pericardial effusion. There is cervical thoracic levoscoliosis. IMPRESSION: 1. No etiology for the patient's symptoms. Reviewed, dictated and finalized at location A. LOPE ADJUSTER
--- NOTE | ~2024-12-13 | XR_ITS ---
EXAMINATION: XR scoliosis survey DATE: 12/13/2024 07:52 INDICATION: Scoliosis. TECHNIQUE: Anteroposterior and lateral views of the entire spine standing were obtained. COMPARISON: None. FINDINGS: Left femoral head stands 3 mm higher than the right. There are ribs at L1. S1 is a transiti onal segment. There is 25 degrees levoscoliosis from C6 to T6 by the Yin method. There is 16 degrees dextroscoliosis from T6 to T9. IMPRESSION: 1. 25 degrees levoscoliosis from C6 to T6 and 16 degrees dextroscoliosis from T6 to T9. Reviewed, dictated and finalized at location A. NOLOGY AUDITOR IMPRESSION: 1. 25 degrees levoscoliosis from C6 to T6 and 16 degrees dextroscoliosis from T 6 to T9.
== END 2024-12-13 07:04 | disposition home or self-care (01) ==
PROVIDERS: PCP Internal Medicine; Visit Provider Internal Medicine
DX: R07.9 Chest pain, unspecified (principal); M41.9 Scoliosis, unspecified; R10.11 Right upper quadrant pain
CPT/HCPCS: 71046; 71260; 72082; 76705; Q9967

== ENCOUNTER 2024-12-31 08:13 | Outpatient (CLI) | payer OTHER, SELFPAY | END 2024-12-31 08:14 | disposition home or self-care (01) | LOC: ANHIMG 08:19 | PROVIDERS: PCP Internal Medicine; Visit Provider Internal Medicine | DX: K76.9 Liver disease, unspecified (principal) | CPT/HCPCS: 74183; A9577 ==

== ENCOUNTER 2025-01-07 16:26 | Outpatient (RCR) | payer OTHER, SELFPAY ==
--- NOTE | 2025-01-07 17:24 | PTOPEVAL1 ---
Assessment and note entered by Tayler Wilks DPT Evaluation Information Assessment Status Evaluation Diagnosis mid back pain ICD-10 Condition Codes (PT) Pain in Thoracic Spine M54.6 Subjective Information Patient reports that over a year ago her mid back started to hurt. she reports that pain started in the R side of the ribs. 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 she reports pain does not change much in other position. she reports x-rays showed scoliosis. she does not have a follow up scheduled with MD. Reported Pain Level Pain Score 2: Self Report Assessment PT Clinical Summary Mrs. Sweeney is a 34 year old female who presents to skilled PT with mid back and R rib pain. She demonstrates decreased core strength, impaired posture and decreased thoracic mobility. She has difficulty with prolonged positing required to complete house hold tasks and work. She would benefit from skilled PT to address impairments and return to PLOF. Plan of Care Interventions Electrical Stimulation,Gait Training,Hot Pack/Cold Pack,Mechanical Traction,Patient/Caregiver Education,Therapeutic Activities,Therapeutic Exercise PT Services Indicated Yes Treatment Frequency and 2x weekly for 8 visits Duration These treatments will address the objective and functional deficits as defined above. The patient will be advanced safely and appropriately in order for the patient to progress towards his/her prior level of function. Additional exercises will be introduced and as well as a comprehensive home exercise program upon discharge, if needed, ?to ensure carryover of functional gains achieved in the clinic. This treatment plan has been reviewed and agreement upon by the patient.
--- NOTE | 2025-01-30 16:31 | OPREHPOC ---
Outpatient Therapy Plan of Care This is a Multidisciplinary Plan of Care that may contain components documented by all disciplines (PT, OT, and ST.) PT Problem 1 PT Problem #1 Knowledge Deficit PT Goal 1 Goal / Goal Update patient to demonstrate independence with HEP Target Visit 4 Progress Met PT Problem 2 PT Problem #2 Pain PT Goal 1 Goal / Goal Update 1. patient to report highest pain at 2/10 Target Visit 8 Progress Not Met PT Problem 3 PT Problem #3 Impaired Strength PT Goal 1 Goal / Goal Update patient to demonstrate 4+/5 core strength to improve ability to complete house hold tasks without increase in pain Target Visit 8 Progress Met PT Problem 4 PT Problem #4 Impaired Functional Mobility PT Goal 1 Goal / Goal Update 1. Patient to report no increase in pain following work shift -not met 2. Patient to demonstrate <10% impairment on BackINDEX -met Target Visit 8 Progress Partially Met
--- NOTE | 2025-01-30 16:31 | PTOPDC ---
Assessment and note entered by Ethel Yang, PT Evaluation Information Assessment Status Discharge Diagnosis mid back pain ICD-10 Condition Codes (PT) Pain in Thoracic Spine M54.6 Subjective Information Sharonda reports she's had a good improvement in her mid back pain since beginning therapy. 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 She has also started doing some yoga at home without difficulty. She's been independent with her HEP and is ready to discharge. Reported Pain Level Pain Score 0: Self Report Assessment PT Clinical Summary Mrs. Sweeney has attended 8 total skilled physical therapy visits addressing mid back pain. Since beginning therapy she has made good progress in her core strength and her pain has reduced. 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 She has been independent in her HEP, feels like she can manage her pain on her own and is ready to discharge this date. Plan of Care PT Services Indicated No
== END 2025-01-30 16:44 | disposition home or self-care (01) ==
LOC: CHSPT 16:26
PROVIDERS: PCP Internal Medicine; Visit Provider Internal Medicine
DX: M54.9 Dorsalgia, unspecified (principal); G89.29 Other chronic pain
CPT/HCPCS: 97110; 97112; 97140; 97161

== ENCOUNTER 2025-07-08 15:15 | Outpatient (CLI) | payer OTHER, SELFPAY ==
--- NOTE | ~2025-07-08 | US_ITS ---
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 Comparison: None Technique: Tran-scale and color Doppler images were obtained. Findings: Uterus: Uterus anteverted 10.7 x 3.9 x 3.9 cm. Anterior uterine body fibroid 6 x 6 mm. . Endometrium 4 mm. Right Ovary:Right ovary 1.8 x 1.7 x 2.3 cm, no adnexal mass, normal flow. Left Ovary: Left ovary 2.3 x 1.4 x 1.5 cm, no adnexal mass, normal flow. Free Fluid: None Impression: 1. No etiology to explain the patient's symptoms. Small probable uterine fibroid detailed above Reviewed, dictated and finalized at location A. Impression: 1. No etiology to explain the patient's symptoms. Small probable uterine fibroi d detailed above
== END 2025-07-08 15:16 | disposition home or self-care (01) ==
LOC: MICIMG 15:16
PROVIDERS: PCP Obstetrics & Gynecology; Visit Provider Obstetrics & Gynecology
DX: D21.9 Benign neoplasm of connective and other soft tissue, unspecified (principal); N92.0 Excessive and frequent menstruation with regular cycle; R10.2 Pelvic and perineal pain
CPT/HCPCS: 76830; 76856